=== PATIENT | male | born 1990 | race Caucasian/White ===

== ENCOUNTER 2022-01-10 13:22 | Inpatient (IN) ==
[2022-01-10] MEDS ORDERED: Lactated Ringers 1000 ml BAG 1,000 ML IV ONE (13:52)
[2022-01-10 14:18] LABS: Hematocrit 45 % (42-52); Hemoglobin 15.6 g/dL (14.0-18.0); Mean Corpuscular HGB Conc 34 g/dL (31-36); Mean Corpuscular Hemoglobin 33 pg (27-31); Mean Corpuscular Volume 96 fL (80-94); Red Blood Count 4.72 10^6 /uL (4.18-5.48); Red Cell Distribution Width 12 % (10-15); White Blood Count 7.7 10^3/uL (3.5-10.8)
[2022-01-10 14:25] LABS: INR 1.12 (0.86-1.15)
[2022-01-10 15:02] LABS: ALT 105 U/L (7-52); AST 132 U/L (13-39); Albumin 4.3 g/dL (3.2-5.2); Albumin/Globulin Ratio 1.7 (1-3); Alcohol, S < 13 mg/dL (<13); Alkaline Phosphatase 93 U/L (35-149); Anion Gap 15 mmol/L (2-11); Blood Urea Nitrogen 9 mg/dL (6-24); CO2 Carbon Dioxide 30 mmol/L (22-32); Calcium 9.7 mg/dL (8.6-10.3); Chloride 91 mmol/L (101-111); Creatine Kinase 193 U/L (10-223); Globulin 2.5 g/dL (2-4); Glucose 119 mg/dL (70-100); Magnesium 1.6 mg/dL (1.9-2.7); Potassium 3.3 mmol/L (3.5-5.0); Sodium 136 mmol/L (135-145); Total Protein 6.8 g/dL (6.4-8.9); eGFR CKD-EPI 120.3 (>60)
[2022-01-10 15:13] LABS: ABS Basophils 0.1 10^3/ul (0-0.2); ABS Lymphocytes 0.8 10^3/ul (1.0-4.8); ABS Monocytes 0.7 10^3/ul (0-0.8); ABS Neutrophils 6.1 10^3/ul (1.5-7.7); Eosinophil % 0.2 %; Large Platelets Present; Mean Platelet Volume 11.1 fL (7.4-10.4); Nucleated Red Blood Cells % 0.1; Platelet Count 92 10^3/uL (150-450)
[2022-01-10] MEDS ORDERED: Magnesium Sulfate IV 1GM/100ML 1 GM/100 ML BAG IV ONE (15:36)
[2022-01-10] MEDS ORDERED: Potassium Chlor 20 meq TAB.ER PO ONE (15:36)
[2022-01-10] MEDS ORDERED: LORazepam 2 mg VIAL 1 ml IV PUSH ONE ×2 (17:31→18:47)
[2022-01-10] MEDS ORDERED: Lorazepam PYXIS KEY PRN ×2 (17:31→18:47)
[2022-01-10] MEDS ORDERED: Thiamine 100 MG/ML 2 ml VIAL 100 MG, Folic Acid IV 1 MG, Multiple Vitamin IV ADULT 10 M... IV ONE (17:37)
[2022-01-10 18:06] LABS: Indirect Bilirubin 1.8 mg/dL (0.3-1.0)
[2022-01-10] MEDS ORDERED: Magnesium Sulfate IV 3 GM in NS 0.9% 100 ml BAG 100 ML IVPB ONE (19:34)
[2022-01-10] MEDS ORDERED: NS 0.9% 100 ml BAG 100 ML ONE (21:18)
[2022-01-11] MEDS ORDERED: Magnesium Sulfate 2 GM IV (Premix) IVPB ONE (00:15)
[2022-01-11] MEDS ORDERED: Magnesium Sulfate 1 GM IV 1 GM/100 ML BAG IV ONE (01:30)
[2022-01-11 06:28] LABS: ABS Basophils 0.1 10^3/ul (0-0.2); ABS Eosinophils 0.1 10^3/ul (0-0.6); ABS Lymphocytes 1.6 10^3/ul (1.0-4.8); ABS Monocytes 0.8 10^3/ul (0-0.8); ABS Neutrophils 4.7 10^3/ul (1.5-7.7); Hematocrit 43 % (42-52); Hemoglobin 14.7 g/dL (14.0-18.0); Lymphocyte % 21.4 %; Mean Corpuscular HGB Conc 34 g/dL (31-36); Mean Corpuscular Hemoglobin 34 pg (27-31); Mean Corpuscular Volume 98 fL (80-94); Mean Platelet Volume 11.1 fL (7.4-10.4); Platelet Count 73 10^3/uL (150-450); Red Cell Distribution Width 12 % (10-15); White Blood Count 7.3 10^3/uL (3.5-10.8)
[2022-01-11 06:30] LABS: INR 1.11 (0.86-1.15)
[2022-01-11 06:42] LABS: Albumin 3.9 g/dL (3.2-5.2); Calcium 8.1 mg/dL (8.6-10.3); Magnesium 2.5 mg/dL (1.9-2.7); Potassium 3.2 mmol/L (3.5-5.0)
[2022-01-11 06:48] LABS: Total Protein 5.9 g/dL (6.4-8.9); eGFR CKD-EPI 136.5 (>60)
[2022-01-11] MEDS: Multivitamins/Minerals TAB PO SCH (08:04)
[2022-01-11] MEDS ORDERED: Potassium Chlor 20 meq TAB.ER PO ONE (08:14)
[2022-01-12 06:20] LABS: Albumin/Globulin Ratio 1.9 (1-3); Calcium 9.1 mg/dL (8.6-10.3); Globulin 2.1 g/dL (2-4); Magnesium 1.7 mg/dL (1.9-2.7); Potassium 3.5 mmol/L (3.5-5.0); Total Bilirubin 1.6 mg/dL (0.2-1.0); Total Protein 6.1 g/dL (6.4-8.9); eGFR CKD-EPI 127.6 (>60)
[2022-01-12 06:24] LABS: INR 1.07 (0.86-1.15)
[2022-01-12 06:35] LABS: ABS Basophils 0.1 10^3/ul (0-0.2); ABS Eosinophils 0.2 10^3/ul (0-0.6); ABS Monocytes 0.7 10^3/ul (0-0.8); ABS Neutrophils 3.9 10^3/ul (1.5-7.7); Eosinophil % 3.2 %; Hematocrit 44 % (42-52); Lymphocyte % 29.3 %; Mean Corpuscular HGB Conc 34 g/dL (31-36); Mean Corpuscular Hemoglobin 34 pg (27-31); Mean Corpuscular Volume 99 fL (80-94); Red Blood Count 4.48 10^6 /uL (4.18-5.48); Red Cell Distribution Width 12 % (10-15); White Blood Count 6.9 10^3/uL (3.5-10.8)
[2022-01-12] MEDS ORDERED: Magnesium Sulfate 2 gm BAG 2 GM/50 ML BAG IVPB ONE (08:05)
[2022-01-12 08:11] LABS: Mean Platelet Volume 11.6 fL (7.4-10.4); Platelet Count 77 10^3/uL (150-450)
[2022-01-12] MEDS: Multivitamins/Minerals TAB PO SCH (08:15)
[2022-01-12 09:05] LABS: Folate 9.64 ng/mL (5.90-24.80)
[2022-01-12 10:50] VITALS: BP 141/101
[2022-01-12 22:24] LABS: Anaplasma phagocytophilum Negative (Negative); B. miyamotoi PCR, B Negative (Negative); Babesia divergens/MO-1 Negative (Negative); Babesia ducani Negative (Negative); Ehrlichia chaffeensis Negative (Negative); Ehrlichia ewingii/canis Negative (Negative); Ehrlichia muris eauclairensis Negative (Negative)
[2022-01-16 15:05] LABS: IgG Immunoblot Negative (Negative); IgM Immunoblot Positive (Negative)
== END 2022-01-12 11:15 | disposition home or self-care (01) | DRG 53 ==
LOC: ED 13:22 → SUATTDRO 18:20 → EDHOLD 18:20 → OBSVTOIN 18:20 → INTOOBSV 18:20 → SSU 22:46
PROVIDERS: ADMIT Family Medicine; ATTEND Internal Medicine

== ENCOUNTER 2022-07-04 09:30 | Observation (INO) ==
[2022-07-04 09:53] LABS: ABS Basophils 0.1 10^3/ul (0-0.2); ABS Eosinophils 0.1 10^3/ul (0-0.6); ABS Lymphocytes 1.1 10^3/ul (1.0-4.8); ABS Neutrophils 6.2 10^3/ul (1.5-7.7); Eosinophil % 1.2 %; Hematocrit 39 % (42-52); Hemoglobin 13.5 g/dL (14.0-18.0); Lymphocyte % 13.2 %; Mean Corpuscular HGB Conc 35 g/dL (31-36); Mean Corpuscular Hemoglobin 33 pg (27-31); Mean Corpuscular Volume 95 fL (80-94); Mean Platelet Volume 11.4 fL (7.4-10.4); Nucleated Red Blood Cells % 0.2; Platelet Count 79 10^3/uL (150-450); Red Blood Count 4.08 10^6 /uL (4.18-5.48); Red Cell Distribution Width 13 % (10-15); White Blood Count 8.5 10^3/uL (3.5-10.8)
[2022-07-04] MEDS ORDERED: Thiamine 100 MG/ML 2 ml VIAL 100 MG, Folic Acid IV 1 MG, Multiple Vitamin IV ADULT 10 M... IV ONE (10:00)
[2022-07-04] MEDS ORDERED: Multivitamins/Minerals TAB PO SCH (10:00)
[2022-07-04] MEDS ORDERED: LORazepam 2 mg VIAL 1 ml IV PUSH SCH (10:00)
[2022-07-04 10:32] LABS: Albumin 3.5 g/dL (3.2-5.2); Albumin/Globulin Ratio 1.7 (1-3); Globulin 2.1 g/dL (2-4); Magnesium 1.8 mg/dL (1.9-2.7); Phosphorus 1.8 mg/dL (2.5-5.0); Potassium 3.3 mmol/L (3.5-5.0); Total Bilirubin 3.2 mg/dL (0.2-1.0); Total Protein 5.6 g/dL (6.4-8.9); eGFR CKD-EPI 131.2 (>60)
[2022-07-04 10:44] LABS: Large Platelets Present
[2022-07-04] MEDS ORDERED: Magnesium Sulf 4 GM/100 ML IV 4,000 MG/100 ML BAG IVPB ONE (13:08)
[2022-07-04] MEDS ORDERED: Potassium Chlor 20 meq TAB.ER PO ONE (13:13)
[2022-07-04] MEDS ORDERED: POTASSIUM PHOSPHATE IVPB ONE (13:30)
[2022-07-04] MEDS ORDERED: NS 0.9% IVPB ONE (13:30)
[2022-07-04] MEDS ORDERED: Potassium Phosphate IV 15 MMOL in NS 0.9% 250 ml 250 ML IVPB ONE (13:30)
[2022-07-04] MEDS: Nicotine PATCH 14 MG/24 HR PATCH TRANSDERM SCH (16:09)
[2022-07-05 06:00] LABS: ABS Basophils 0.1 10^3/ul (0-0.2); ABS Eosinophils 0.2 10^3/ul (0-0.6); ABS Lymphocytes 2.1 10^3/ul (1.0-4.8); ABS Monocytes 0.8 10^3/ul (0-0.8); ABS Neutrophils 5.1 10^3/ul (1.5-7.7); Eosinophil % 2.2 %; Hematocrit 40 % (42-52); Hemoglobin 14.2 g/dL (14.0-18.0); Lymphocyte % 25.7 %; Mean Corpuscular HGB Conc 35 g/dL (31-36); Mean Corpuscular Hemoglobin 34 pg (27-31); Mean Corpuscular Volume 96 fL (80-94); Mean Platelet Volume 11.1 fL (7.4-10.4); Nucleated Red Blood Cells % 0.1; Platelet Count 73 10^3/uL (150-450); Red Blood Count 4.18 10^6 /uL (4.18-5.48); Red Cell Distribution Width 13 % (10-15); White Blood Count 8.3 10^3/uL (3.5-10.8)
[2022-07-05 06:37] LABS: Albumin 3.8 g/dL (3.2-5.2); Albumin/Globulin Ratio 1.7 (1-3); Calcium 7.6 mg/dL (8.6-10.3); Globulin 2.3 g/dL (2-4); Magnesium 2.2 mg/dL (1.9-2.7); Phosphorus 1.6 mg/dL (2.5-5.0); Potassium 3.6 mmol/L (3.5-5.0); Total Bilirubin 3.2 mg/dL (0.2-1.0); Total Protein 6.1 g/dL (6.4-8.9); eGFR CKD-EPI 135.6 (>60)
[2022-07-05] MEDS: Nicotine PATCH 14 MG/24 HR PATCH TRANSDERM SCH (08:09)
[2022-07-05] MEDS ORDERED: Multivitamins/Minerals TAB PO SCH (09:00)
[2022-07-05] MEDS ORDERED: Magnesium Sulf 4 GM/100 ML IV 4,000 MG/100 ML BAG IVPB ONE (09:22)
[2022-07-05] MEDS ORDERED: NS 0.9% IVPB ONE (09:22)
[2022-07-05] MEDS ORDERED: POTASSIUM PHOSPHATE IVPB ONE (09:22)
[2022-07-05 10:52] VITALS: BP 133/111
== END 2022-07-05 10:52 | disposition home or self-care (01) ==
LOC: EDHOLD 09:30 → ED 09:30 → SUATTDRO 09:56 → EDHOLD 07-05 10:51
PROVIDERS: ADMIT Internal Medicine; ATTEND Internal Medicine

== ENCOUNTER 2023-03-10 08:33 | Observation (INO) ==
[2023-03-10] MEDS ORDERED: LORazepam 2 mg VIAL 1 ml IV ONE (08:43)
[2023-03-10] MEDS ORDERED: Thiamine 100 MG/ML 2 ml VIAL 100 MG, Folic Acid IV 1 MG, Multiple Vitamin IV ADULT 10 M... IV ONE (08:43)
[2023-03-10] MEDS ORDERED: Lactated Ringers 1000 ml BAG 1,000 ML IV ONE ×2 (08:45→10:23)
[2023-03-10] MEDS ORDERED: LORazepam 2 mg VIAL 1 ml IV PUSH SCH (09:00)
[2023-03-10 09:15] LABS: Activated Partial Thrombo Time 36.7 seconds (26.0-38.0); INR 1.58 (0.83-1.13)
[2023-03-10 09:19] LABS: Albumin 3.3 g/dL (3.2-5.2); Albumin/Globulin Ratio 0.9 (1-3); Creatinine, Serum 0.74 mg/dL (0.67-1.17); Globulin 3.8 g/dL (2-4); Magnesium 1.7 mg/dL (1.9-2.7); Potassium 3.5 mmol/L (3.5-5.0); Total Bilirubin 5.1 mg/dL (0.2-1.0); Total Protein 7.1 g/dL (6.4-8.9); eGFR CKD-EPI 121.9 (>60)
[2023-03-10 09:41] LABS: ABS Basophils 0.2 10^3/uL (0.0-0.1); ABS Eosinophils 0.1 10^3/uL (0.0-0.5); ABS Lymphocytes 1.4 10^3/uL (1.0-4.8); ABS Monocytes 0.4 10^3/uL (0.0-1.1); ABS Neutrophils 4.7 10^3/uL (1.5-7.6); ABS Nucleated RBC 0.01 10^3/ul; Eosinophil % 0.9 %; Hematocrit 36.5 % (38-53); Hemoglobin 12.6 g/dL (13.2-16.3); Lymphocyte % 20.9 %; Mean Corpuscular Hemoglobin 32.6 pg (27-33); Mean Corpuscular Hgb Conc 34.5 g/dL (31-36); Mean Corpuscular Volume 94.4 fL (80-97); Nucleated Red Blood Cells % 0.1 /100 WBC (0.0-0.4); Red Blood Count 3.86 10^6/uL (4.06-5.63); Red Cell Distribution Width 13.6 % (12-17); White Blood Count 6.6 10^3/uL (3.6-10.2)
[2023-03-10 10:07] LABS: Mean Platelet Volume 11.5 fL (7.5-11.2); Platelet Count 30 10^3/uL (150-450)
[2023-03-10] MEDS ORDERED: Magnesium Sulfate 2 gm BAG 2 GM/50 ML BAG IVPB ONE (11:22)
[2023-03-10 13:20] LABS: Urine Appearance Clear; Urine Bilirubin Negative (Negative); Urine Blood Negative (Negative); Urine Color Amber; Urine Glucose Negative (Negative); Urine Ketones Negative (Negative); Urine Nitrite Negative (Negative); Urine Protein Negative (Negative); Urine Specific Gravity 1.014 (1.002-1.030); Urine Urobilinogen Positive (Negative)
[2023-03-10 13:29] LABS: Urine Benzodiazepine Screen None Detected (None Detect); Urine Cannabinoids Screen Presumptive Positive (None Detect); Urine Opiates Screen None Detected (None Detect)
[2023-03-10 16:51] LABS: Direct Bilirubin 2.1 mg/dL (0.03-0.18)
[2023-03-11 06:13] LABS: ABS Basophils 0.1 10^3/uL (0.0-0.1); ABS Eosinophils 0.1 10^3/uL (0.0-0.5); ABS Lymphocytes 1.4 10^3/uL (1.0-4.8); ABS Monocytes 0.6 10^3/uL (0.0-1.1); ABS Neutrophils 5.2 10^3/uL (1.5-7.6); Eosinophil % 0.9 %; Hematocrit 34.1 % (38-53); Hemoglobin 11.9 g/dL (13.2-16.3); Mean Corpuscular Hemoglobin 32.7 pg (27-33); Mean Corpuscular Hgb Conc 34.9 g/dL (31-36); Mean Corpuscular Volume 93.7 fL (80-97); Red Blood Count 3.64 10^6/uL (4.06-5.63); Red Cell Distribution Width 13.7 % (12-17); White Blood Count 7.3 10^3/uL (3.6-10.2)
[2023-03-11 06:40] LABS: Albumin/Globulin Ratio 0.9 (1-3); Calcium 8.2 mg/dL (8.6-10.3); Creatinine, Serum 0.63 mg/dL (0.67-1.17); Globulin 3.2 g/dL (2-4); Magnesium 1.8 mg/dL (1.9-2.7); Potassium 3.4 mmol/L (3.5-5.0); Total Bilirubin 5.3 mg/dL (0.2-1.0); Total Protein 6.2 g/dL (6.4-8.9)
[2023-03-11 07:14] LABS: Mean Platelet Volume 9.7 fL (7.5-11.2); Platelet Count 19 10^3/uL (150-450)
[2023-03-11] MEDS: Multivitamins/Minerals TAB PO SCH (09:22)
[2023-03-11] MEDS ORDERED: Magnesium Sulfate IV 1GM/100ML 1 GM/100 ML BAG IV ONE (11:07)
[2023-03-11] MEDS ORDERED: Piperacillin/Tazobac 3.375 BAG 3.375 GM/100 ML BAG IV ONE (11:46)
[2023-03-11] MEDS ORDERED: Zosyn per Pharmacy NOTE FOLLOW UP SCH (12:00)
[2023-03-11 12:20] LABS: INR 1.73 (0.83-1.13)
[2023-03-11 12:32] LABS: Vitamin B12 > 1450 pg/mL (180-914)
[2023-03-11 12:33] LABS: Hepatitis B Surface Antigen Nonreactive (Nonreactive)
[2023-03-11 12:38] LABS: Hepatitis A Ab IgM Negative (Negative); Hepatitis B Core IgM Nonreactive (Nonreactive)
[2023-03-11 12:50] LABS: Hepatitis C Antibody Negative (Negative)
[2023-03-11 13:39] LABS: Protime (Maddrey) 19.3 seconds (9.5-12.8); Total Bilirubin 5.3 mg/dL (0.2-1.0)
[2023-03-11] MEDS: Lactated Ringers 1000 ml BAG 1,000 ML IV SCH (14:27)
[2023-03-11] MEDS ORDERED: LORazepam 2 mg VIAL 1 ml IV PUSH SCH (15:20)
[2023-03-11] MEDS ORDERED: Lorazepam PYXIS KEY PRN (15:35)
[2023-03-11] MEDS: ZOSYN 3.375 GM Q8H per EXTENDED INFUSION IV SCH (18:04)
[2023-03-12] MEDS: ZOSYN 3.375 GM Q8H per EXTENDED INFUSION IV SCH (02:10)
[2023-03-12 05:58] LABS: INR 1.92 (0.83-1.13)
[2023-03-12 06:02] LABS: ABS Basophils 0.1 10^3/uL (0.0-0.1); ABS Eosinophils 0.2 10^3/uL (0.0-0.5); ABS Lymphocytes 1.4 10^3/uL (1.0-4.8); ABS Monocytes 0.6 10^3/uL (0.0-1.1); ABS Neutrophils 5.2 10^3/uL (1.5-7.6); Eosinophil % 2.8 %; Hematocrit 34.1 % (38-53); Hemoglobin 11.8 g/dL (13.2-16.3); Mean Corpuscular Hemoglobin 32.6 pg (27-33); Mean Corpuscular Hgb Conc 34.6 g/dL (31-36); Mean Corpuscular Volume 94.4 fL (80-97); Mean Platelet Volume 9.8 fL (7.5-11.2); Platelet Count 20 10^3/uL (150-450); Red Blood Count 3.61 10^6/uL (4.06-5.63); Red Cell Distribution Width 13.7 % (12-17); White Blood Count 7.5 10^3/uL (3.6-10.2)
[2023-03-12 06:10] LABS: Albumin 2.8 g/dL (3.2-5.2); Albumin/Globulin Ratio 0.8 (1-3); C Reactive Protein 11.4 mg/L (<8.01); Calcium 7.9 mg/dL (8.6-10.3); Creatinine, Serum 0.73 mg/dL (0.67-1.17); Globulin 3.3 g/dL (2-4); HDL Cholesterol 27.9 mg/dL; Potassium 3.2 mmol/L (3.5-5.0); Total Bilirubin 6.1 mg/dL (0.2-1.0); Total Protein 6.1 g/dL (6.4-8.9); eGFR CKD-EPI 122.4 (>60)
[2023-03-12] MEDS: Lactated Ringers 1000 ml BAG 1,000 ML IV SCH (06:11)
[2023-03-12] MEDS ORDERED: KCL 20 MEQ/100 ML IVPREMIX 20 MEQ/100 ML BAG IV SCH (08:00)
[2023-03-12] MEDS: Multivitamins/Minerals TAB PO SCH (09:17)
[2023-03-12 09:43] LABS: Protime (Maddrey) 21.3 seconds (9.5-12.8); Total Bilirubin 6.1 mg/dL (0.2-1.0)
[2023-03-12 09:59] LABS: Magnesium 1.8 mg/dL (1.9-2.7)
[2023-03-12 10:28] VITALS: BP 120/72
[2023-03-15 13:18] LABS: Anaplasma phagocytophilum Negative (Negative); B. miyamotoi PCR, B Negative (Negative); Babesia divergens/MO-1 Negative (Negative); Babesia ducani Negative (Negative); Ehrlichia chaffeensis Negative (Negative); Ehrlichia ewingii/canis Negative (Negative); Ehrlichia muris eauclairensis Negative (Negative)
== END 2023-03-12 11:24 | disposition left against medical advice (07) ==
LOC: EDHOLD 08:33 → ED 08:33 → SUATTDRO 11:57 → MEDTELE 13:16
PROVIDERS: ADMIT Internal Medicine; ATTEND Internal Medicine